=== PATIENT | male | born 1960 | race Two or more races ===

== ENCOUNTER 2019-09-01 10:34 | Emergency (ER) | payer BC ==
[~2019-09-01] VITALS: Ht 193 cm; Wt 120.2 kg
[2019-09-01 13:24] VITALS: BP 150/85
[2019-09-01] MEDS ORDERED: BACITRACIN TOP OINT 1 UD PKG TOP ONE (14:15)
== END 2019-09-01 14:49 | disposition home or self-care (01) ==
LOC: ER 10:34
DX: S91.301A Unspecified open wound, right foot, initial encounter (principal); E11.9 Type 2 diabetes mellitus without complications; X58.XXXA Exposure to other specified factors, initial encounter; Y93.89 Activity, other specified; Y99.8 Other external cause status; Y92.89 Other specified places as the place of occurrence of the external cause
CPT/HCPCS: 73630; 82962